=== PATIENT | male | born 1945 | race Caucasian/White ===

== ENCOUNTER 2017-02-01 10:53 | Observation (INO) | payer OTHER ==
[~2017-02-01] VITALS: Ht 182.9 cm; Wt 100.5 kg
[~2017-02-01 10:53] MED LIST: ASPI81TA28 PO; ATEN50TA8 PO; CLOP1TAB15 PO; DILT120C50 PO; GLIP-197 PO; LISI-787 PO; OMEG10007 PO; SIMV20TA2 PO
[2017-02-01] MEDS ORDERED: ASPIRIN 81 MG CHEW PO STA (11:27)
--- NOTE | 2017-02-01 11:32 | EMERGENCY ROOM VISIT NOTE ---
History Report prepared by Braulio: Angela Lemons Under the Supervision of: Dr. Jefrfey Muñoz M.D. First contact with patient: 11:19 Chief Complaint: CHEST PAIN Stated Complaint: CHEST PAIN,SOB,NUMBNESS IN ARM History of Present Illness The patient is a 71 year old male who presents to the Emergency Room with complaints of intermittent left sided chest pain that began four days ago. He currently rates his discomfort as a 5/10 in severity. The patient reports that he has a history pain similar to this in August 2015, noting that he had a stent placed in [place]. He reports that his pain radiates down his left arm and additionally notes numbness in his left arm. The patient states that his pain is worsened with movement and exertion. He additionally associates shortness of breath, lightheadedness, and dizziness with his symptoms today. The patient denies any loss of consciousness, fever, nausea, back pain, melena, or hematochezia. He reports that he takes aspirin daily. Source of History: patient, family Onset: four days ago Position: chest (left) Symptom Intensity: 5/10 Timing: intermittent Modifying Factors (Worsening): exertion, movement Associated Symptoms: + SOB, + numbness (left arm), No LOC, No fevers, No nausea, No back pain, No melena, No hematochezia Note: Associated Symptoms: lightheadedness, dizziness, left arm pain Review of Systems See HPI for pertinent positives & negatives. A total of 10 systems reviewed and were otherwise negative. Past Medical & Surgical Medical Problems: (1) CAD (coronary artery disease) (2) Chest pain (3) Hypertension Old medical records were reviewed. Nurse's notes were reviewed and I agree with. Family History Patient reports no known family medical history. Social History Smoking Status: Former Smoker Marital Status: Housing Status: lives with family Current/Historical Medications Scheduled Aspirin (Aspirin Ec), 81 MG PO DAILY Atenolol (Tenormin), 50 MG PO DAILY Glipizide (Glipizide Er), 2.5 MG PO BID Hctz/Lisinopril (Zestoretic 20-12.5 mg), 2 TABS PO DAILY Pantoprazole (Protonix), 40 MG PO DAILY Simvastatin (Zocor), 10 MG PO QPM Allergies Coded Allergies: Meperidine (Verified Allergy, Unknown, UNKNOWN, 02/26/16) Physical Exam Vital Signs Date Time Temp Pulse Resp B/P (MAP) Pulse Ox O2 Delivery O2 Flow Rate FiO2 02/01/17 14:10 94 Room Air 02/01/17 14:00 53 20 217/95 95 02/01/17 13:32 53 20 196/91 94 Room Air 02/01/17 13:17 54 02/01/17 12:30 53 20 189/89 93 02/01/17 12:07 54 18 192/91 95 Room Air 02/01/17 11:22 95 Room Air 02/01/17 11:21 55 18 175/89 95 Room Air 02/01/17 11:19 95 Room Air 02/01/17 11:13 56 02/01/17 10:55 36.3 55 20 189/90 94 Room Air Physical Exam General: Well developed well nourished, non-ill appearing middle aged male, in no acute distress, breathing comfortably on room air. Normal speech HEENT: Normal cephalic atraumatic. Pupils are equal round and reactive to light. Extraocular movements are intact. Oropharynx is pink with moist mucous membranes. No swelling of the mouth lips or tongue. Neck: Supple with a midline trachea. No meningeal signs or stiffness, no JVD or bruits. No Stridor. Chest: Clear to auscultation bilaterally. No wheezes or rhonchi. No increased work of breathing. Heart: regular rate and rhythm. Abdomen: Soft nontender, nondistended without rebound guarding or rigidity. Extremities: No cyanosis clubbing or edema. No calf tenderness or assymetry Spine/Back. Non tender to palpation. No CVA tenderness Skin: Good turgor without rashes. Neurologic exam: Cranial nerves two through 12 are intact. Motor and sensation are intact and symmetrical throughout. Medical Decision & Procedures ER Provider Diagnostic Interpretation: X-ray results as stated below per interpretation by me and the radiologist: CHEST ONE VIEW PORTABLE CLINICAL HISTORY: CHEST PAIN dyspnea COMPARISON STUDY: No previous studies for comparison. FINDINGS: The bones soft tissues and hemidiaphragms are normal. The cardiomediastinal silhouette is normal. The lungs are clear. The pulmonary vasculature is normal. IMPRESSION: Negative chest. Electronically signed by: South Eid M.D. 02/01/2017 11:46 AM Dictated Date/Time: 02/01/2017 11:44 AM The status of this report is Signed. Draft = Not yet reviewed or approved by Radiologist. Signed = Reviewed and approved by Radiologist. Laboratory Results 02/01/17 11:15 Red Blood Count 5.19, Mean Corpuscular Volume 87.3, Mean Corpuscular Hemoglobin 30.6, Mean Corpuscular Hemoglobin Concent 35.1, Mean Platelet Volume 10.8, Neutrophils (%) (Auto) 59.4, Lymphocytes (%) (Auto) 30.8, Monocytes (%) (Auto) 7.9, Eosinophils (%) (Auto) 1.5, Basophils (%) (Auto) 0.3, Neutrophils # (Auto) 5.66, Lymphocytes # (Auto) 2.94, Monocytes # (Auto) 0.75, Eosinophils # (Auto) 0.14, Basophils # (Auto) 0.03 02/01/17 11:15 Test 02/01/17 11:15 02/01/17 11:27 02/01/17 11:37 White Blood Count 9.53 K/uL (4.8-10.8) Red Blood Count 5.19 M/uL (4.7-6.1) Hemoglobin 15.9 g/dL (14.0-18.0) Hematocrit 45.3 % (42-52) Mean Corpuscular Volume 87.3 fL (80-100) Mean Corpuscular Hemoglobin 30.6 pg (25-34) Mean Corpuscular Hemoglobin Concent 35.1 g/dl (32-36) Platelet Count 184 K/uL (130-400) Mean Platelet Volume 10.8 fL (7.4-10.4) Neutrophils (%) (Auto) 59.4 % Lymphocytes (%) (Auto) 30.8 % Monocytes (%) (Auto) 7.9 % Eosinophils (%) (Auto) 1.5 % Basophils (%) (Auto) 0.3 % Neutrophils # (Auto) 5.66 K/uL (1.4-6.5) Lymphocytes # (Auto) 2.94 K/uL (1.2-3.4) Monocytes # (Auto) 0.75 K/uL (0.11-0.59) Eosinophils # (Auto) 0.14 K/uL (0-0.5) Basophils # (Auto) 0.03 K/uL (0-0.2) RDW Standard Deviation 40.5 fL (36.4-46.3) RDW Coefficient of Variation 12.7 % (11.5-14.5) Immature Granulocyte % (Auto) 0.1 % Immature Granulocyte # (Auto) 0.01 K/uL (0.00-0.02) Prothrombin Time 10.0 SECONDS (9.0-12.0) Prothromb Time International Ratio 0.9 (0.9-1.1) Activated Partial Thromboplast Time 22.6 SECONDS (21.0-31.0) Partial Thromboplastin Ratio 0.9 Anion Gap 7.0 mmol/L (3-11) Est Creatinine Clear Calc Drug Dose 42.8 ml/min Estimated GFR () 39.9 Estimated GFR (Non- 34.5 BUN/Creatinine Ratio 11.4 (10-20) Estimated Average Glucose 126 mg/dl Hemoglobin A1c 6.0 % (4.5-5.6) Calcium Level 8.2 mg/dl (8.5-10.1) Total Bilirubin 0.7 mg/dl (0.2-1) Direct Bilirubin mg/dl (0-0.2) Aspartate Amino Transf (AST/SGOT) 19 U/L (15-37) Alanine Aminotransferase (ALT/SGPT) 24 U/L (12-78) Alkaline Phosphatase 66 U/L (45-117) Total Creatine Kinase 134 U/L (39-308) Creatine Kinase MB 1.9 ng/ml (0.5-3.6) Total Protein 7.1 gm/dl (6.4-8.2) Albumin 3.7 gm/dl (3.4-5.0) Lipase 265 U/L (73-393) Chemistry Specimen Hemolysis Creatine Kinase MB Ratio (0-3.0) Bedside Troponin I < 0.030 ng/ml (0-0.045) Laboratory studies as stated above per my review. Medications Administered Medications (Trade) Dose Ordered Sig/Gregoria Route Start Time Stop Time Status Last Admin Dose Admin Aspirin (Aspirin Chew) 324 mg NOW STAT PO 02/01/17 11:27 02/01/17 11:29 DC 02/01/17 12:17 324 MG Hydralazine HCl (HydrALAZINE INJ) 10 mg NOW STAT IV. 02/01/17 14:00 02/01/17 14:30 DC 02/01/17 14:00 10 MG ECG Indication: chest pain Rate (beats per minute): 54 Rhythm: sinus bradycardia Findings: no acute ischemic change, left axis deviation Comparison ECG Date: 06/09/99 Change: no significant change ED Course 1124: Past medical records reviewed. The patient was evaluated in room C6, and a complete history and physical examination were performed. 1127: Ordered Aspirin 324 mg PO. 1309: I reevaluated the patient and he is resting comfortably. I discussed the exam findings with him and I discussed the treatment plan. He verbalized complete understanding and agreement. He will be evaluated for further treatment. 1341: I discussed the patients case with JOAQUÍN Renee. He is going to evaluate the patient for further treatment. Medical Decision Differentials include, but are not limited to; acute coronary syndrome, arrhythmia, electrolyte or metabolic abnormality, CHF. Medication Reconciliation: I attest that I have personally reviewed the patient' s current medication list. Blood pressure Screening: Patient was found to have an elevated blood pressure and is being followed for further treatment and evaluation in the hospital. This patient comes in as described above. He's been having intermittent chest pain and left arm pain. It is exertional. He does have a history of coronary artery disease and did have a stent placed for similar complaints in the past. He is pain-free at present. He was given aspirin here. His initial EKG does not suggest acute coronary syndrome or arrhythmia. There are no ischemic changes. Chest x-ray was unremarkable and there is nothing to suggest congestive heart failure, pneumonia, pneumothorax. His cardiac biomarkers are not elevated initially. He has some renal insufficiency but no other electrolyte or metabolic abnormality. Given his cardiac history and his symptoms, I do think he needs to be observed or admitted in the hospital for further treatment and evaluation. The symptoms are worrisome for unstable angina. He will be admitted for further treatment and evaluation. I have consulted the hospitalist team. Consults Time Called: 1309 Consulting Physician: JOAQUÍN Renee Returned Call: 1341 I discussed the patients case with JOAQUÍN Renee. He is going to evaluate the patient for further treatment. Impression Primary Impression: Unstable angina Additional Impression: Precordial chest pain Scribe Attestation The scribe's documentation has been prepared under my direction and personally reviewed by me in its entirety. I confirm that the note above accurately reflects all work, treatment, procedures, and medical decision making performed by me. Departure Information Dispostion Being Evaluated By Hospitalist Referrals No Doctor, Assigned (PCP) Problem Qualifiers
[2017-02-01 11:47] LABS: BASO % 0.3 %; BASO ABS # 0.03 K/uL (0-0.2); COMPLETE YES; EOS % 1.5 %; HEMATOCRIT 45.3 % (42-52); IG% 0.1 %; LYMPH % 30.8 %; LYMPH ABS # 2.94 K/uL (1.2-3.4); MEAN CELL VOLUME 87.3 fL (80-100); MEAN CORPUSCULAR HEMOGLOBIN 30.6 pg (25-34); MEAN CORPUSCULAR HGB CONC 35.1 g/dl (32-36); MEAN PLATELET VOLUME 10.8 fL (7.4-10.4); MONO % 7.9 %; NEUT % 59.4 %; PLATELET COUNT 184 K/uL (130-400); RED BLOOD COUNT 5.19 M/uL (4.7-6.1); WHITE BLOOD COUNT 9.53 K/uL (4.8-10.8)
--- NOTE | 2017-02-01 11:48 | DIAGNOSTIC IMAGING REPORT ---
CHEST ONE VIEW PORTABLE CLINICAL HISTORY: CHEST PAIN dyspnea COMPARISON STUDY: No previous studies for comparison. FINDINGS: The bones soft tissues and hemidiaphragms are normal. The cardiomediastinal silhouette is normal. The lungs are clear. The pulmonary vasculature is normal. IMPRESSION: Negative chest. Electronically signed by: South Eid M.D. 02/01/2017 11:46 AM Dictated Date/Time: 02/01/2017 11:44 AM
[2017-02-01 11:55] LABS: INR 0.9 (0.9-1.1); PARTIAL THROMBOPLASTIN RATIO 0.9
[2017-02-01] MEDS ORDERED: PANT40TA PO (12:00)
[2017-02-01] MEDS ORDERED: ASPI81TA28 PO (12:12)
[2017-02-01 12:23] LABS: ALKALINE PHOSPHATASE 66 U/L (45-117); ALT/SGPT 24 U/L (12-78); AST/SGOT 19 U/L (15-37); BLOOD UREA NITROGEN 22 mg/dl (7-18); BUN/CREATININE RATIO 11.4 (10-20); CALCIUM 8.2 mg/dl (8.5-10.1); CARBON DIOXIDE 30 mmol/L (21-32); CHLORIDE 105 mmol/L (98-107); CKMB/CK RATIO 1.4 (0-3.0); GLUCOSE 105 mg/dl (70-99); POTASSIUM 3.8 mmol/L (3.5-5.1); SODIUM 142 mmol/L (136-145)
[2017-02-01] MEDS ORDERED: GLUCAGON FOR INJ 1 MG VIAL SQ PRN (14:00)
[2017-02-01] MEDS ORDERED: NITROGLYCERIN 0.4 MG SL PER TAB CHARGE SL PRN (14:00)
[2017-02-01] MEDS ORDERED: HydrALAZINE HCL 20 MG/ML VIAL IV. STA (14:00)
[2017-02-01] MEDS ORDERED: HydrALAZINE HCL 20 MG/ML VIAL IV. PRN (14:00)
[2017-02-01] MEDS ORDERED: GLUCOSE 10 TABS/TUBE PO PRN (14:00)
[2017-02-01] MEDS ORDERED: ONDANSETRON INJ 2 MG/ML 2 ML VIAL IV PRN (14:00)
[2017-02-01] MEDS ORDERED: POLYETHYLENE (MIRALAX) 17 GM PACK PO PRN (14:00)
[2017-02-01] MEDS ORDERED: GLUCOSE 40% GEL 15 GM TUBE PO PRN (14:00)
[2017-02-01] MEDS ORDERED: MAGNESIUM HYDROXIDE SUSP 30 ML UDC PO PRN (14:00)
[2017-02-01] MEDS ORDERED: DEXTROSE 50% 50 ML SYR IV PRN (14:00)
[2017-02-01] MEDS ORDERED: ALUMINUM/MAGNESIUM/SIMETH (MAALOX MAX) 30 ML UDC PO PRN (14:00)
[2017-02-01] MEDS ORDERED: ACETAMINOPHEN 325 MG TAB PO PRN (14:00)
[2017-02-01 14:10] VITALS: O2SAT 94; Ht 182.9 cm; Wt 100.5 kg
[2017-02-01] MEDS ORDERED: IV FLUIDS COMPLETED PRN (14:15)
--- NOTE | 2017-02-01 14:29 | History and Physical ---
History & Physical Date & Time of Service: Feb 01, 2017 at 14:13 Chief Complaint: Chest Pain,Sob,Numbness In Arm Primary Care Physician: No Doctor, Assigned History of Present Illness Source: patient, family (son in law at bedside), hospital records This is a 71 y/o male with a history of CO s/p cardiac stent x 1 in August 2015 , HTN, HLD, DM II and GERD who presented to the ED on 02/01 with intermittent chest pain x 4 days. The patient describes an intermittent chest pressure on the left side of his chest for the last 4 days. The patient denies taking anything for the pain at home. He denies anything making pain better or worse. Today the chest discomfort began radiating down his left arm and was accompanied with left arm numbness and some shortness of breath. He states that this feels like his last heart attack in August 2015, after which he had 1 stent placed at [facility]. The patient states that at its worst, his chest discomfort was a 6/10 pressure. He states that his chest pain and shortness of breath are currently resolved, as well as his arm pain and numbness. The patient denies fevers, chills, sweats, dizziness, headache, palpitations, claudication, cough, wheezing, nausea, vomiting, abdominal pain, dysuria, hematuria, urinary retention, paralysis, weakness. Past Medical/Surgical History Medical Problems: (1) CAD (coronary artery disease) Status: Chronic (2) Hypertension Status: Chronic HLD h/o CO s/p stent August 2015 DM II GERD Family History Diabetes mellitus Hypertension Myocardial infarction Stroke Social History Smoking Status: Light Tobacco Smoker (occasional cigars) Smokeless Tobacco Use: No Alcohol Use: none Drug Use: none Marital Status: Housing status: lives with significant other Occupational Status: retired Allergies Coded Allergies: Meperidine (Verified Allergy, Unknown, UNKNOWN, 02/26/16) Home Medications Scheduled Aspirin (Aspirin Ec), 81 MG PO DAILY Atenolol (Tenormin), 50 MG PO DAILY Glipizide (Glipizide Er), 2.5 MG PO BID Hctz/Lisinopril (Zestoretic 20-12.5 mg), 2 TABS PO DAILY Pantoprazole (Protonix), 40 MG PO DAILY Simvastatin (Zocor), 10 MG PO QPM Review of Systems Constitutional: No fever, No chills, No sweats Eyes: No worsening of vision, No eye pain, No diplopia ENT: No hearing loss, No sore throat, No trouble swallowing Respiratory: + shortness of breath, No cough, No wheezing Cardiovascular: + chest pain, No claudication, No palpitations Abdomen: No pain, No nausea, No vomiting Musculoskeletal: No joint pain, No muscle pain, No calf pain Genitourinary - Male: No hematuria, No dysuria, No urinary retention Neurologic: + numbness/tingling, No paralysis, No weakness Integumentary: No rash, No itch, No color change Physical Exam Vital Signs Date Time Temp Pulse Resp B/P (MAP) Pulse Ox O2 Delivery O2 Flow Rate FiO2 02/01/17 13:32 53 20 196/91 94 Room Air 02/01/17 13:17 54 02/01/17 12:30 53 20 189/89 93 02/01/17 12:07 54 18 192/91 95 Room Air 02/01/17 11:22 95 Room Air 02/01/17 11:21 55 18 175/89 95 Room Air 02/01/17 11:19 95 Room Air 02/01/17 11:13 56 02/01/17 10:55 36.3 55 20 189/90 94 Room Air General appearance: Well-developed, well-nourished, no apparent distress Head: Normocephalic, atraumatic Eyes: Normal inspection, PERRL, EOMI ENT: Normal ENT inspection, hearing grossly normal, pharynx normal Neck: Supple, no JVD, trachea midline Respiratory/Chest: Lungs clear to auscultation, normal breath sounds, no respiratory distress Cardiovascular: +Bradycardia. Regular rhythm, no gallop, no murmur Abdomen/GI: Normal bowel sounds, non-tender, soft Extremities/Musculoskeletal: Normal inspection, no calf tenderness, no pedal edema Neurological/Psych: Alert, normal mood/affect, oriented x 3 Skin: Normal color, warm/dry, no rash Diagnostics Laboratory Results Results Past 24 Hours Test 02/01/17 11:15 02/01/17 11:27 02/01/17 11:37 02/01/17 13:59 Range/Units White Blood Count 9.53 4.8-10.8 K/uL Red Blood Count 5.19 4.7-6.1 M/uL Hemoglobin 15.9 14.0-18.0 g/dL Hematocrit 45.3 42-52 % Mean Corpuscular Volume 87.3 80-100 fL Mean Corpuscular Hemoglobin 30.6 25-34 pg Mean Corpuscular Hemoglobin Concent 35.1 32-36 g/dl Platelet Count 184 130-400 K/uL Mean Platelet Volume 10.8 7.4-10.4 fL Neutrophils (%) (Auto) 59.4 % Lymphocytes (%) (Auto) 30.8 % Monocytes (%) (Auto) 7.9 % Eosinophils (%) (Auto) 1.5 % Basophils (%) (Auto) 0.3 % Neutrophils # (Auto) 5.66 1.4-6.5 K/uL Lymphocytes # (Auto) 2.94 1.2-3.4 K/uL Monocytes # (Auto) 0.75 0.11-0.59 K/uL Eosinophils # (Auto) 0.14 0-0.5 K/uL Basophils # (Auto) 0.03 0-0.2 K/uL RDW Standard Deviation 40.5 36.4-46.3 fL RDW Coefficient of Variation 12.7 11.5-14.5 % Immature Granulocyte % (Auto) 0.1 % Immature Granulocyte # (Auto) 0.01 0.00-0.02 K/uL Prothrombin Time 10.0 9.0-12.0 SECONDS Prothromb Time International Ratio 0.9 0.9-1.1 Activated Partial Thromboplast Time 22.6 21.0-31.0 SECONDS Partial Thromboplastin Ratio 0.9 Sodium Level 142 136-145 mmol/L Potassium Level 3.8 3.5-5.1 mmol/L Chloride Level 105 98-107 mmol/L Carbon Dioxide Level 30 21-32 mmol/L Anion Gap 7.0 3-11 mmol/L Blood Urea Nitrogen 22 7-18 mg/dl Creatinine 1.90 0.60-1.40 mg/dl Est Creatinine Clear Calc Drug Dose 42.8 ml/min Estimated GFR () 39.9 Estimated GFR (Non- 34.5 BUN/Creatinine Ratio 11.4 10-20 Random Glucose 105 70-99 mg/dl Calcium Level 8.2 8.5-10.1 mg/dl Total Bilirubin 0.7 0.2-1 mg/dl Direct Bilirubin 0-0.2 mg/dl Aspartate Amino Transf (AST/SGOT) 19 15-37 U/L Alanine Aminotransferase (ALT/SGPT) 24 12-78 U/L Alkaline Phosphatase 66 45-117 U/L Total Creatine Kinase 134 39-308 U/L Creatine Kinase MB 1.9 0.5-3.6 ng/ml Creatine Kinase MB Ratio 1.4 0-3.0 Total Protein 7.1 6.4-8.2 gm/dl Albumin 3.7 3.4-5.0 gm/dl Lipase 265 73-393 U/L Chemistry Specimen Hemolysis Bedside Troponin I < 0.030 0-0.045 ng/ml Diagnostic Radiology Reviewed the following studies and agree with interpretation as follows: Patient Name: KELSEA TORRES Unit Number: [id number] Dictated: 02/01/[id number] Transcribed: 02/01/17 1144 MS Printed Date/Time: [~ rep prt dt]/[~ rep prt tm] [~ rep ct labl] - [~ rep ct ivnm] [facility] [place] [address] Dictated: 02/01/[id number] Transcribed: 02/01/17 1144 MS Printed Date/Time: [~ rep prt dt]/[~ rep prt tm] [~ rep ct labl] - [~ rep ct ivnm] Patient: KELSEA TORRES Address1: [address] [place] [address] Rec: [id number] Address2: Acct ID: [id number] [facility] Zip: [place] [address] Date: 1945 Sex: M Room/Bed: Ref Phy: No Doctor, Assigned SC: REMBERTO Att Phy: Report #: [id number] Jahaira Phy: No Doctor, Assigned Test: CXR1P Admit Phy: [place]: ALMA Interpreting Phy: South Eid M.D. Diagnosis: CHEST PAIN,SOB,NUMBNESS IN ARM Ordering Phy: Jeffrey Muñoz M.D. Service Date: 02/01/17 Admit Date: 02/01/17 MNE: [id number] CONF: DICTATED BY: South Eid M.D.]] CC: Jeffrey Muñoz M.D. No Doctor, Assigned Endcc: [~ rep ct add3]] CHEST ONE VIEW PORTABLE CLINICAL HISTORY: CHEST PAIN dyspnea COMPARISON STUDY: No previous studies for comparison. FINDINGS: The bones soft tissues and hemidiaphragms are normal. The cardiomediastinal silhouette is normal. The lungs are clear. The pulmonary vasculature is normal. IMPRESSION: Negative chest. Electronically signed by: South Eid M.D. 02/01/2017 11:46 AM Dictated Date/Time: 02/01/2017 11:44 AM The status of this report is Signed. Draft = Not yet reviewed or approved by Radiologist. Signed = Reviewed and approved by Radiologist. <AttendingPhy></AttendingPhy> <FamilyPhy>No Doctor, Assigned</FamilyPhy> < PrimaryPhy>No Doctor, Assigned</PrimaryPhy> <UnitNumber>[id number]</UnitNumber> <VisitNumber>[id number]</VisitNumber> <PatientName>KELSEA TORRES</ PatientName> <DateOfBirth>1945</DateOfBirth> <Location>[facility]</Location> < ServiceDate>02/01/17</ServiceDate> <MNE>ESINDI</MNE> <OrderingPhy>Jeffrey Muñoz M.D.</OrderingPhy> <OrderingPhyMNE>f rep ord dr perdue</OrderingPhyMNE> < DictatingPhyMNE>f rep dict dr perdue</DictatingPhyMNE> <CCListMNE>f rep ct mne</ CCListMNE> <AdmittingPhyMNE>f pt admit dr perdue</AdmittingPhyMNE> <AttendingPhyMNE >f pt attend dr perdue</AttendingPhyMNE> <ConsultingPhyMNE>f pt consult dr perdue</ConsultingPhyMNE> <FamilyPhyMNE>f pt fam dr perdue</FamilyPhyMNE> <OtherPhyMNE>f pt other dr perdue</OtherPhyMNE> < PrimaryPhyMNE>f pt prim care dr perdue</PrimaryPhyMNE> <ReferringPhyMNE>f pt referring dr mne</ReferringPhyMNE> EKG Reviewed EKG and agree with interpretation as follows: 54 bpm, sinus bradycardia, LAD, old inferior infarct Impression Assessment and Plan 71 y/o male with a history of CO s/p cardiac stent x 1 in August 2015, HTN, HLD , DM II and GERD who presented to the ED on 02/01 with intermittent chest pain x 4 days. Associated shortness of breath, left arm pain and numbness with today' s chest discomfort. Pt received ASA in ED. BP elevated while in ED, up to 203/ 93 during my exam. CXR no acute disease. EKG sinus bradycardia without acute ischemic changes, shows inferior infarct. Cardiac enzymes negative. Creatinine elevated at 1.9, unknown baseline. Hypertensive emergency w/chest pain, h/o HTN -Admit to telemetry for observation -Hydralazine 10 mg IV stat, hydralazine 10 mg PO x 1 -Hydralazine 10 mg PO QID -Nitro paste 1 inch q6h scheduled -Trend cardiac enzymes q8h x 3 -Echocardiogram ordered -EKG q am and prn with chest pain -HgbA1c -Fasting lipid panel -Hold lisinopril/HCTZ due to LEANDRO -Cover with hydralazine 10 mg IV q6h prn SBP >180 Acute kidney injury--unknown baseline creatinine, last creatinine on hospital records from 1998 -Creatinine 1.9 on arrival -IVF NSS 125 cc/hr -Hold lisinopril/HCTZ as above -Continue to monitor H/o CO s/p stent August 2015, CAD -Continue atenolol 50 mg PO qd and ASA 81 mg PO qd HLD -Continue simvastatin 10 mg PO qhs Diabetes mellitus type 2--no HgbA1c on record, rechecking now -Hold glipizide -Insulin sliding scale -Check BSGs q ac and qhs GERD -Continue pantoprazole 40 mg PO qd DVT prophylaxis -Heparin 5000 units SC q8h -ESTUARDO Mathew Code Status -Level I, FULL RESUSCITATION STATUS This chart was completed in part utilizing Number 100 Speech Voice Recognition software. Attempts were made to minimize the grammatical errors, random word insertions, pronoun errors and incomplete sentences. Any formal questions or concerns about the content, text or information contained within the body of this dictation should be directly addressed to the provider for clarification. Level of Care Telemetry Resuscitation Status FULL RESUSCITATION VTE Prophylaxis VTE Risk Assessment Done? Y/N: Yes Risk Level: Moderate Given or contraindicated: Unfractionated heparin SQ, T.E.D. Stockings, SCD's Assessment and Plan Attending Addendum: I have physically seen and examined this patient, directed their medical care, supervised the Physician Neonatal Icu Coordinator's activity, and agree with the H&P as noted above, with the following changes: NONE.
[2017-02-01] MEDS ORDERED: NITROGLYCERIN OINT 2% 1GM PACKET EXT SCH (14:30)
[2017-02-01] MEDS ORDERED: HydrALAZINE 10 MG TAB PO ONE (14:30)
[2017-02-01 14:48] LABS: ESTIMATED AVERAGE GLUCOSE 126 mg/dl; HA1C FLAG Normal (Normal)
[2017-02-01 16:00] VITALS: BP 208/92; PULSE 59; TEMP 36.9; O2SAT 95
[2017-02-01] MEDS: INSULIN ASPART 100 UNITS/ML 3 ML PEN SC SCH ×2 (16:15→21:00)
[2017-02-01] MEDS: SODIUM CHLORIDE 0.9% 1000ML 1,000 ML IV SCH (16:43)
[2017-02-01] MEDS: HydrALAZINE 10 MG TAB PO SCH ×2 (17:03→21:07)
[2017-02-01] MEDS: NITROGLYCERIN 2% OINTMENT 30GM TUBE EXT SCH (17:33)
[2017-02-01 17:35] VITALS: BP 173/85
[2017-02-01 19:38] VITALS: BP 126/58; PULSE 114; TEMP 36.3; O2SAT 91
[2017-02-01 19:45] VITALS: BP 172/82; PULSE 59; TEMP 36.4; O2SAT 94
[2017-02-01 20:08] LABS: CKMB/CK RATIO 1.7 (0-3.0)
[2017-02-01] MEDS: SIMVASTATIN 20 MG TAB PO SCH (21:06)
[2017-02-01] MEDS: HEPARIN SOD 5000 UNIT/0.5 ML CARP SQ SCH (21:08)
[2017-02-01 23:10] VITALS: BP 145/73; PULSE 70; TEMP 36.9; O2SAT 95
[2017-02-02] MEDS: SODIUM CHLORIDE 0.9% 1000ML 1,000 ML IV SCH ×3 (00:18→21:21)
[2017-02-02] MEDS: NITROGLYCERIN 2% OINTMENT 30GM TUBE EXT SCH ×4 (00:18→17:56)
[2017-02-02 03:15] VITALS: BP 139/72; PULSE 64; TEMP 36.7; O2SAT 95
[2017-02-02 03:17] LABS: HEMATOCRIT 42.9 % (42-52); MEAN CELL VOLUME 87.2 fL (80-100); MEAN CORPUSCULAR HEMOGLOBIN 30.3 pg (25-34); MEAN CORPUSCULAR HGB CONC 34.7 g/dl (32-36); MEAN PLATELET VOLUME 10.6 fL (7.4-10.4); PLATELET COUNT 161 K/uL (130-400); RED BLOOD COUNT 4.92 M/uL (4.7-6.1); WHITE BLOOD COUNT 8.47 K/uL (4.8-10.8)
[2017-02-02 03:34] LABS: BLOOD UREA NITROGEN 23 mg/dl (7-18); CALCIUM 7.9 mg/dl (8.5-10.1); CARBON DIOXIDE 27 mmol/L (21-32); CHLORIDE 108 mmol/L (98-107); GLUCOSE 107 mg/dl (70-99); POTASSIUM 3.6 mmol/L (3.5-5.1); SODIUM 143 mmol/L (136-145)
[2017-02-02 03:39] LABS: CHOLESTEROL 120 mg/dl (0-200); CHOLESTEROL/HDL RATIO 5.2; CKMB/CK RATIO 1.4 (0-3.0); HDL CHOLESTEROL 23 mg/dl; LDL CHOLESTEROL CALCULATED 22 mg/dl; TRIGLYCERIDES 373 mg/dl (0-150); VERY LOW DENSITY LIPOPROT CALC 75 mg/dl
[2017-02-02] MEDS: HEPARIN SOD 5000 UNIT/0.5 ML CARP SQ SCH ×3 (06:22→21:24)
[2017-02-02] MEDS: INSULIN ASPART 100 UNITS/ML 3 ML PEN SC SCH ×4 (07:00→21:00)
[2017-02-02] MEDS: ASPIRIN 81 MG ECTAB PO SCH (08:12)
[2017-02-02] MEDS: PANTOprazole SOD 40 MG TAB PO SCH (08:13)
[2017-02-02 08:46] VITALS: BP 177/79; PULSE 62; TEMP 36.5; O2SAT 94
[2017-02-02] MEDS: HydrALAZINE 10 MG TAB PO SCH ×4 (09:32→21:22)
[2017-02-02 11:31] VITALS: BP 150/76; PULSE 59; TEMP 36.7; O2SAT 95
--- NOTE | 2017-02-02 12:55 | Progress Note ---
Subjective Date of Service: Feb 02, 2017. Subjective Pt evaluation today including: conversation w/ patient, conversation w/ family , physical exam, chart review, lab review, review of studies, conversation w/ learning consultant, review of inpatient medication list Sitting up eating lunch, no complaining no chest pain, no shortness of breath Problem List Medical Problems: (1) Precordial chest pain Status: Acute (2) Unstable angina Status: Acute (3) Wound infection Status: Acute Review of Systems Constitutional: No fever, No chills, No sweats, No weight loss, No weakness, No fatigue, No problem reported Eyes: No worsening of vision, No eye pain, No redness, No discharge, No diplopia ENT: No hearing loss, No unusual epistaxis, No nasal symptoms, No sore throat, No tinnitus, No dental problems, No trouble swallowing Respiratory: No cough, No sputum, No wheezing, No shortness of breath, No dyspnea on exertion, No dyspnea at rest, No hemoptysis Cardiac: No chest pain, No orthopnea, No PND, No edema, No claudication, No palpitations Abdomen: No pain, No nausea, No vomiting, No diarrhea, No constipation Musculoskeletal: No joint pain, No muscle pain, No swelling, No calf pain Male : No dysuria, No urinary frequency, No incontinence, No nocturia more than once/night, No slowing stream, No hematuria Neurologic: No memory loss, No paralysis, No weakness, No numbness/tingling, No vertigo, No balance problems Psychiatric: No depression symptoms, No anhedonism, No anxiety, No insomnia, No substance abuse Heme: No abnormal bleeding/bruising, No clotting problems, No swollen lymph nodes, No night sweats Endo: No fatigue, No excessive thirst, No excessive urination Skin: No rash, No itch, No new/changing skin lesions, No color change, No bleeding Objective Vital Signs Date Time Temp Pulse Resp B/P (MAP) Pulse Ox O2 Delivery O2 Flow Rate FiO2 02/02/17 11:31 36.7 59 16 150/76 (100) 95 Room Air 59 02/02/17 08:46 36.5 62 16 177/79 (111) 94 Room Air 62 02/02/17 04:25 Room Air 02/02/17 03:15 36.7 64 18 139/72 (94) 95 Room Air 02/02/17 00:25 Room Air 02/01/17 23:10 36.9 70 18 145/73 (97) 95 Room Air 02/01/17 20:19 Room Air 02/01/17 19:45 36.4 59 16 172/82 (112) 94 Room Air 02/01/17 19:38 36.3 114 22 126/58 (80) 91 Nasal Cannula 4.0 02/01/17 17:35 173/85 (114) 02/01/17 16:00 36.9 59 16 208/92 (130) 95 Room Air 02/01/17 16:00 Room Air 02/01/17 15:27 53 20 207/97 94 Room Air 02/01/17 15:00 55 20 192/87 95 02/01/17 14:10 94 Room Air 02/01/17 14:00 53 20 217/95 02/01/17 13:32 53 20 196/91 94 Room Air 02/01/17 13:17 54 Physical Exam General Appearance: WD/WN, no apparent distress Eyes: normal inspection, PERRL, EOMI, sclerae normal ENT: normal ENT inspection, hearing grossly normal, pharynx normal Neck: supple, no adenopathy, thyroid normal, no JVD, no carotid bruits, trachea midline Respiratory/Chest: chest non-tender, normal breath sounds, no respiratory distress, no accessory muscle use, + decreased breath sounds Cardiovascular: regular rate, rhythm, no edema, no gallop, no JVD, no murmur Abdomen: normal bowel sounds, non tender, soft, no organomegaly, no pulsatile mass Extremities: normal range of motion, non-tender, normal inspection, no pedal edema, no calf tenderness, normal capillary refill, pelvis stable Neurologic/Psychiatric: 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 tested, no motor/sensory deficits, alert, normal mood/affect, oriented x 3 Skin: normal color, warm/dry, no rash Lymphatic: no adenopathy Laboratory Results Last 24 Hours Test 02/01/17 16:43 02/01/17 19:27 02/01/17 20:12 02/02/17 03:00 Bedside Glucose 100 mg/dl 112 mg/dl Total Creatine Kinase 93 U/L 88 U/L Creatine Kinase MB 1.6 ng/ml 1.2 ng/ml Creatine Kinase MB Ratio 1.7 1.4 Troponin I < 0.015 ng/ml < 0.015 ng/ml White Blood Count 8.47 K/uL Red Blood Count 4.92 M/uL Hemoglobin 14.9 g/dL Hematocrit 42.9 % Mean Corpuscular Volume 87.2 fL Mean Corpuscular Hemoglobin 30.3 pg Mean Corpuscular Hemoglobin Concent 34.7 g/dl RDW Standard Deviation 40.7 fL RDW Coefficient of Variation 12.7 % Platelet Count 161 K/uL Mean Platelet Volume 10.6 fL Sodium Level 143 mmol/L Potassium Level 3.6 mmol/L Chloride Level 108 mmol/L Carbon Dioxide Level 27 mmol/L Anion Gap 8.0 mmol/L Blood Urea Nitrogen 23 mg/dl Creatinine 1.90 mg/dl Est Creatinine Clear Calc Drug Dose 42.8 ml/min Estimated GFR () 39.9 Estimated GFR (Non- 34.5 BUN/Creatinine Ratio 12.0 Random Glucose 107 mg/dl Calcium Level 7.9 mg/dl Triglycerides Level 373 mg/dl Cholesterol Level 120 mg/dl HDL Cholesterol 23 mg/dl LDL Cholesterol, Calculated 22 mg/dl VLDL Cholesterol, Calculated 75 mg/dl Cholesterol/HDL Ratio 5.2 Test 02/02/17 06:57 02/02/17 10:49 Bedside Glucose 109 mg/dl 139 mg/dl Assessment and Plan 71 y/o male admitted on 02/01/2017 with intermittent chest pain x 4 days. Patient reported has chest pain, and goes for 4 days, associated shortness of breath, left arm pain and numbness with today's chest discomfort. Pt received ASA in ED. BP elevated while in ED, up to 203/93 during my exam. CXR no acute disease. EKG sinus bradycardia without acute ischemic changes, shows inferior infarct. Cardiac enzymes negative. Creatinine elevated at 1.9, unknown baseline. history of IN s/p cardiac stent x 1 in August 2015, HTN, HLD, DM II and GERD Hypertensive emergency w/chest pain, h/o HTN, stable and improved Acute kidney injury--unknown baseline creatinine, Creatinine 1.9 on arrival, today's the same Chest pain was intermittent with history of IN and stent, Stent was done in [place] by Dr. Hampton, then he follow-up with [place] team Diabetic Dyslipidemia with high triglyceride: - The new telemetry for observation -Hydralazine 10 mg IV stat, hydralazine 10 mg PO x 1 -Hydralazine 10 mg PO QID -Nitro paste 1 inch q6h scheduled Her medical record from the [facility] include recent labs and recent cardiology progress note Stress echo tomorrow to rule out ACS -EKG q am and prn with chest pain -HgbA1c -Fasting lipid panel -Continue Hold lisinopril/HCTZ due to LEANDRO -Cover with hydralazine 10 mg IV q6h prn SBP >180 -IVF NSS 125 cc/hr -Hold lisinopril/HCTZ as above -Continue to monitor -Continue atenolol 50 mg PO qd and ASA 81 mg PO qd HLD with hypertriglyceridemia -Continue simvastatin 10 mg PO qhs - Add Zetia Controlled Diabetes mellitus type 2 HbA1c 6.0 -Hold glipizide Cozaar possible renal failure -Insulin sliding scale -Check BSGs q ac and qhs GERD -Continue pantoprazole 40 mg PO qd DVT prophylaxis -Heparin 5000 units SC q8h -ESTUARDO Mathew Code Status -Level I, FULL RESUSCITATION STATUS Patient initially want to leave from hospital, is convincing him to stay Continued [facility] stay due to: multiple IV medications needed Discharge planning: home
--- NOTE | 2017-02-02 13:35 | ECHOCARDIOGRAM REPORT ---
*NOTICE TO RECEIVING CONSTITUTION PARTY AGENCY This information is strictly Confidential and protected under [place] law. [place] law prohibits you from making any further disclosure of this information unless further disclosure is expressly permitted by the written consent of the person to whom it pertains or is authorized by law. A general authorization for the release of medical or other information is not sufficient for this purpose. Hospital accepts no responsibility if the information is made available to any other person, INCLUDING THE PATIENT. Interpretation Summary * Name: KELSEA TORRES Study Date: 02/02/2017 06:28 AM BP: 139/72 mmHg * Patient Location: C.2E\S\E205\S\1 HR: 64 * : 1945 (M/d/yyyy) Gender: Male Height: 72 in * Age: 71 yrs Ethnicity: CA Weight: 218 lb * Ordering Physician: Maryan Hernandez * Performed By: Lauren Lopez * * Reason For Study: CHEST PAIN * BSA: 2.2 m2 * -- Conclusions -- * There is moderate concentric left ventricular hypertrophy. * Left ventricular systolic function is normal. * Grade I diastolic dysfunction, (abnormal relaxation pattern). * The left atrium is mildly dilated. * Moderate aortic regurgitation. Procedure Details * A complete two-dimensional transthoracic echocardiogram was performed (2D, M-mode, Doppler and color flow Doppler). Left Ventricle * The left ventricle is normal in size. * There is moderate concentric left ventricular hypertrophy. * Ejection Fraction = 65-70%. * Left ventricular systolic function is normal. * Grade I diastolic dysfunction, (abnormal relaxation pattern). * The left ventricular wall motion is normal. Right Ventricle * The right ventricle is normal in size and function. Atria * The left atrium is mildly dilated. * Right atrial size is normal. Mitral Valve * The mitral valve anatomy is normal. * There is trace mitral regurgitation. Tricuspid Valve * The tricuspid valve is not well visualized, but is grossly normal. * Significant tricuspid regurgitation is absent. Aortic Valve * Aortic valve sclerosis mild, without significant aortic valvular stenosis. * No hemodynamically significant valvular aortic stenosis. * Moderate aortic regurgitation. Pericardium/Pleural * There is no pericardial effusion. MMode 2D Measurements and Calculations IVSd 1.6 cm IVSs 2.2 cm LVIDd 4.5 cm LVIDs 2.7 cm LVPWd 1.5 cm LVPWs 1.9 cm IVS/LVPW 1.1 FS 40.2 % EDV(Teich) 91.8 ml ESV(Teich) 26.6 ml EF(Teich) 71.0 % EDV(cubed) 90.3 ml ESV(cubed) 19.4 ml EF(cubed) 78.6 % % IVS thick 41.0 % % LVPW thick 29.9 % LV mass(C)d 281.3 grams LV mass(C)dI 127.3 grams/m\S\2 LV mass(C)s 248.6 grams LV mass(C)sI 112.5 grams/m\S\2 SV(Teich) 65.1 ml SI(Teich) 29.5 ml/m\S\2 SV(cubed) 70.9 ml SI(cubed) 32.1 ml/m\S\2 ACS 1.9 cm LA dimension 4.1 cm asc Aorta Diam 3.0 cm LVOT diam 2.0 cm LVOT area 3.2 cm\S\2 LVAd ap4 39.0 cm\S\2 LVLd ap4 9.3 cm EDV(MOD-sp4) 132.3 ml EDV(sp4-el) 138.2 ml LVAs ap4 19.9 cm\S\2 LVLs ap4 7.2 cm ESV(MOD-sp4) 44.8 ml ESV(sp4-el) 46.5 ml EF(MOD-sp4) 66.2 % EF(sp4-el) 66.3 % LVAd ap2 29.9 cm\S\2 LVLd ap2 8.7 cm EDV(MOD-sp2) 86.2 ml EDV(sp2-el) 87.1 ml LVAs ap2 15.6 cm\S\2 LVLs ap2 6.7 cm ESV(MOD-sp2) 29.1 ml ESV(sp2-el) 30.6 ml EF(MOD-sp2) 66.3 % EF(sp2-el) 64.9 % LVLd %diff -7.03 % EDV(MOD-bp) 110.8 ml LVLs %diff -6.68 % ESV(MOD-bp) 37.2 ml EF(MOD-bp) 66.5 % SV(MOD-sp4) 87.5 ml SI(MOD-sp4) 39.6 ml/m\S\2 SV(MOD-sp2) 57.1 ml SI(MOD-sp2) 25.8 ml/m\S\2 SV(MOD-bp) 73.6 ml SI(MOD-bp) 33.3 ml/m\S\2 SV(sp4-el) 91.7 ml SI(sp4-el) 41.5 ml/m\S\2 SV(sp2-el) 56.6 ml SI(sp2-el) 25.6 ml/m\S\2 Doppler Measurements and Calculations MV E max tasha 52.1 cm/sec MV A max tasha 86.1 cm/sec MV E/A 0.61 MV dec time 0.31 sec Ao V2 max 138.0 cm/sec Ao max PG 7.6 mmHg Ao max PG (full) 3.3 mmHg CHARLEY(V,A) 2.5 cm\S\2 CHARLEY(V,D) 2.5 cm\S\2 AI max tasha 410.9 cm/sec AI max PG 67.5 mmHg AI dec slope 153.0 cm/sec\S\2 AI P1/2t 786.7 msec LV V1 max PG 4.3 mmHg LV V1 max 104.2 cm/sec PA V2 max 58.9 cm/sec PA max PG 1.4 mmHg PI end-d tasha 109.5 cm/sec
--- NOTE | 2017-02-02 14:56 | EXERCISE STRESS ECHO ---
*NOTICE TO RECEIVING DEMOCRAT AGENCY This information is strictly Confidential and protected under [place] law. [place] law prohibits you from making any further disclosure of this information unless further disclosure is expressly permitted by the written consent of the person to whom it pertains or is authorized by law. A general authorization for the release of medical or other information is not sufficient for this purpose. Hospital accepts no responsibility if the information is made available to any other person, INCLUDING THE PATIENT. Interpretation Summary * Name: KELSEA TORRES Study Date: 02/02/2017 01:06 PM BP: 145/79 mmHg * Patient Location: .2E\S\E205\S\1 HR: 63 * : 1945 (M/d/yyyy) Gender: Male Height: 72 in * Age: 71 yrs Ethnicity: CA Weight: 218 lb * Ordering Physician: Max Zeng * Referring Physician: Self, Referred * Performed By: Annabel Jackson RDCS * * Reason For Study: Chest pain * BSA: 2.2 m2 * -- Conclusions -- * Non-diagnostic exercise echocardiogram due to inability to acheive target heart rate. No evidence of ischemia at the workload acheived. Procedure Details * ECHOEX, CPT #44788 Left Ventricular Findings with Stress * Non-diagnostic exercise echocardiogram due to inability to acheive target heart rate. No evidence of ischemia at the workload acheived. Stress Parameters * Normal baseline electrocardiogram. * Stress ECG: No ST changes. No arrhythmias. * The stress portion of this study was personally supervised by the undersigned interpreting physician. * Rest heart rate was '63' BPM. * Rest blood pressure was '145/79' * Maximum heart rate achieved was 105 bpm. * Maximum heart rate was 70 % of maximum age-predicted heart rate. * Maximum blood pressure was '173/58' * Total exercise time was '6:00' * Maximum exercise MET level achieved was '7.00' METS * Maximum treadmill speed was '2.50' miles per hour. * Maximum treadmill elevation was '12.00'% grade. * Exercise was terminated due to 'patient request, fatigue' Left Ventricular Findings with Stress * Normal baseline EKG without ST changes during exercise. Blunted heart rate response to exercise. BP response to exercise was normal No symptoms reported Echocardiogram was normal at baseline. No obvious inducible wall motion abnormalities but heart rate was not eleveated and image quality was poor at peak exertion.
[2017-02-02 15:23] VITALS: BP 122/76; PULSE 62; TEMP 36.8; O2SAT 94
[2017-02-02 19:35] VITALS: BP 175/91; PULSE 58; TEMP 36.8; O2SAT 94
[2017-02-02] MEDS: SIMVASTATIN 20 MG TAB PO SCH (21:22)
[2017-02-03] VITALS: O2SAT 95
[2017-02-03] MEDS: NITROGLYCERIN 2% OINTMENT 30GM TUBE EXT SCH ×3 (00:02→11:44)
[2017-02-03 03:39] VITALS: BP 157/92; PULSE 60; TEMP 36.6; O2SAT 93
[2017-02-03] MEDS: SODIUM CHLORIDE 0.9% 1000ML 1,000 ML IV SCH ×2 (04:32→08:00)
[2017-02-03] MEDS: HEPARIN SOD 5000 UNIT/0.5 ML CARP SQ SCH (06:22)
[2017-02-03] MEDS: INSULIN ASPART 100 UNITS/ML 3 ML PEN SC SCH ×2 (07:00→11:00)
[2017-02-03 07:51] LABS: HEMATOCRIT 41.2 % (42-52); MEAN CELL VOLUME 87.1 fL (80-100); MEAN CORPUSCULAR HEMOGLOBIN 30.4 pg (25-34); MEAN PLATELET VOLUME 10.2 fL (7.4-10.4); PLATELET COUNT 152 K/uL (130-400); RED BLOOD COUNT 4.73 M/uL (4.7-6.1); WHITE BLOOD COUNT 8.58 K/uL (4.8-10.8)
[2017-02-03 07:59] VITALS: BP 152/78; PULSE 62; TEMP 36.7; O2SAT 94
[2017-02-03] MEDS: HydrALAZINE 10 MG TAB PO SCH ×2 (08:14→12:41)
[2017-02-03] MEDS: PANTOprazole SOD 40 MG TAB PO SCH (08:14)
[2017-02-03] MEDS: ASPIRIN 81 MG ECTAB PO SCH (08:14)
[2017-02-03 08:15] LABS: BUN/CREATININE RATIO 10.1 (10-20); CREATININE 1.8 mg/dl (0.60-1.40); POTASSIUM 3.7 mmol/L (3.5-5.1)
[2017-02-03] MEDS ORDERED: EZETIMIBE 10MG TAB PO SCH (09:00)
[2017-02-03] MEDS ORDERED: ZTA10 PO (11:54)
[2017-02-03] MEDS ORDERED: APR10 PO (11:54)
--- NOTE | 2017-02-03 11:55 | Discharge Instructions ---
Discharge Instructions Date of Service Feb 03, 2017. Admission Reason for Admission: Chest Pain Discharge Discharge Diagnosis / Problem: intermittent chest pain Discharge Goals Goal(s): Decrease discomfort, Improve function, Increase independence, Improve disease control, Improve nutritional status, Learn about illness, Diagnostic testing, Therapeutic intervention, Prevent Disease Progression, Specific goals Activity Recommendations Activity Limitations: resume your previous activity . Instructions / Follow-Up Instructions / Follow-Up you have intermittent chest pain x 4 days stress echo unremarkable, however, you need to be seen by you team and follow up with cinema or theatre manager in 1 week you have Hypertensive emergency, blood pressure is better, you need to take medicine as instructed, call [facility] team or go to emergency if blood pressure >200 you have Acute kidney injury, you need to have blood test tomorrow in [facility] and follow up with team, I add Zetia for you Dyslipidemia with high triglyceride I hold your glipizide Cozaar because of oyu possible acute renal failure - you need to follow up with your primary care physician in 1-2 days - take medication as instructed, never overdose or any misuse, or take with alcohol, because misuse of medicine may cause organ damage or , call your primary care physician if have questions of medicaitons. - call your primary care physician OR go to local emergency room if has any fever/chill, chest pain, shortness of breathing, nausea/vomiting/abdominal pain , facial droop/slurry speech/local weakness, or if has any questions. - fall precaution - diet as instructed - you need to follow up with your subspecialist - you should understand that it is important to follow up the above instruction , and "not following the above instruction" may cause delayed or missed care of your medical conditions which may cause permanent organ damage and even . Current Hospital Diet Patient's current hospital diet: AHA Diet (Heart Healthy), Diabetes Type 2 Diet Discharge Diet Recommended Diet: Diabetes Type 2 Diet Procedures Procedures Performed: no Pending Studies Studies pending at discharge: no Laboratory Results Hemoglobin A1c Test 02/01/17 11:15 Range/Units Estimated Average Glucose 126 mg/dl Hemoglobin A1c 6.0 H 4.5-5.6 % Lipid Panel Test 02/02/17 03:00 Range/Units Triglycerides Level 373 H 0-150 mg/dl Cholesterol Level 120 0-200 mg/dl HDL Cholesterol 23 mg/dl Cholesterol/HDL Ratio 5.2 LDL Cholesterol, Calculated 22 mg/dl Medical Emergencies . Who to Call and When: Medical Emergencies: If at any time you feel your situation is an emergency, please call 911 immediately. . Non-Emergent Contact Non-Emergency issues call your: Primary Care Provider, Horticultural Farmworker . . "Provider Documentation" section prepared by Max Zeng. . VTE Core Measure Inpt VTE Proph given/why not?: Unfractionated heparin MALAIKA, T.EDarryl. Jocelyne, SCD 's
[2017-02-03 12:17] VITALS: BP 152/78; PULSE 62; TEMP 36.7; O2SAT 94
--- NOTE | 2017-02-03 13:14 | Discharge Summary ---
Discharge Summary Date of Service Feb 03, 2017. Discharge Summary Admission Date: Feb 01, 2017 at 14:11 Discharge Date: Feb 03, 2017 Discharge Disposition: Home Principal Diagnosis: chest pain with ix of cad, has ruled out acs Problems/Secondary Diagnoses: Hypertensive emergency, possible Acute kidney injury, hypertriglyceridemia DM Procedures: Treadmill echo Consultations: No Medication Reconciliation New Medications: Ezetimibe (Zetia) 10 Mg Tab 10 MG PO QAM for 30 Days, #30 TAB Hydralazine HCl (Hydralazine HCl) 10 Mg Tab 10 MG PO QID for 30 Days, #120 TAB Continued Medications: Aspirin (Aspirin Ec) 81 Mg Tab 81 MG PO DAILY Atenolol (Tenormin) 50 Mg Tab 50 MG PO DAILY, TAB Pantoprazole (Protonix) 40 Mg Tab 40 MG PO DAILY Simvastatin (Zocor) 20 Mg Tab 10 MG PO QPM, TAB Discontinued Medications: Glipizide (Glipizide Er) 5 Mg Tab 2.5 MG PO BID for 90 Days, #90 TAB 3 Refills Hctz/Lisinopril (Zestoretic 20-12.5 mg) 1 Ea Tab 2 TABS PO DAILY Discharge Exam Sitting up in chair, ready to go home, no nausea vomiting, blood pressure fairly controlled, currently SBP around 150 Review of Systems: Constitutional: No fever, No chills, No sweats, No weight loss, No weakness , No fatigue, No problem reported Eyes: No worsening of vision, No eye pain, No redness, No discharge, No diplopia, No problem reported ENT: No hearing loss, No unusual epistaxis, No nasal symptoms, No sore throat, No tinnitus, No dental problems, No trouble swallowing, No problem reported Respiratory: No cough, No sputum, No wheezing, No shortness of breath, No dyspnea on exertion, No dyspnea at rest, No hemoptysis, No problem reported Cardiovascular: No chest pain, No orthopnea, No PND, No edema, No claudication, No palpitations, No problem reported Abdomen: No pain, No nausea, No vomiting, No diarrhea, No constipation, No GI bleeding, No problem reported Musculoskeletal: No joint pain, No muscle pain, No swelling, No calf pain, No problem reported Genitourinary - Male: No hematuria, No dysuria, No urinary frequency, No urinary urgency, No urinary hesitancy, No urinary retention, No urinary incontinence, No penile discharge, No lesions, No impotence, No problem reported Neurologic: No memory loss, No paralysis, No weakness, No numbness/tingling , No vertigo, No balance problems, No problem reported Psychiatric: No depression symptoms, No anhedonism, No anxiety, No insomnia , No substance abuse, No problem reported Endocrine: No fatigue, No excessive thirst, No excessive urination, No problem reported Hematologic / Lymphatic: No abnormal bleeding/bruising, No clotting problems , No swollen lymph nodes, No night sweats, No problem reported Integumentary: No rash, No itch, No new/changing skin lesions, No color change, No bleeding, No problem reported Physical Exam: General Appearance: WD/WN, no apparent distress Eyes: normal inspection, PERRL ENT: normal ENT inspection, hearing grossly normal Neck: supple, no adenopathy Respiratory/Chest: chest non-tender, normal breath sounds, no respiratory distress, + decreased breath sounds Cardiovascular: regular rate, rhythm, no edema, no gallop, no JVD, no murmur , normal peripheral pulses Abdomen / GI: normal bowel sounds, non tender, soft Extremities: normal inspection, no calf tenderness, normal capillary refill , no pedal edema 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 Patient reported has chest pain, and goes for 4 days, associated shortness of breath, left arm pain and numbness with today's chest discomfort. Pt received ASA in ED. BP elevated while in ED, up to 203/93 during my exam. CXR no acute disease. EKG sinus bradycardia without acute ischemic changes, shows inferior infarct. Cardiac enzymes negative. Creatinine elevated at 1.9, unknown baseline. history of IN s/p cardiac stent x 1 in August 2015, HTN, HLD, DM II and GERD Hypertensive emergency w/chest pain, h/o HTN, stable and improved, however, pt ' s lisinopril/HCTZ was holld due to LEANDRO, will continue to hold, Patient has been given hydralazine 10 mg by mouth 3 times a day, plus hydralazine 10 mg by mouth as needed Blood pressure has been fairly controlled has given prescription of hydrolyzing to home Acute kidney injury--unknown baseline creatinine, Creatinine 1.9 on arrival, today's improved 1.8 Has requested hospital medical record, did not receive it yet Chest pain was intermittent with history of IN and stent, Stent was done in [place] by Dr. Hampton, then [facility] Stress echo was done on 02/02/2017: Reported: Normal baseline EKG without ST changes during exercise. Blunted heart rate response to exercise. BP response to exercise was normal No symptoms reported Echocardiogram was normal at baseline. No obvious inducible wall motion abnormalities but heart rate was not eleveated and image quality was poor at peak exertion. Discussed with star route mail driver, recommend follow-up with primary cardiology as outpatient, and nuclear stress possible need History of diabetic, -HgbA1c was checked at 6.0, diabetic medication glipizide was hold, will continue on hold because of possible acute kidney failure, the CPAP is follow- up with niece hx of dyslipidemia , Fasting lipid panel was done, LDL 22, triglyceride 333, I started Zetia -Continue Hold lisinopril/HCTZ due to LEANDRO -Continue atenolol 50 mg PO qd and ASA 81 mg PO qd -Continue simvastatin 10 mg PO qhs -Hold glipizide Cozaar possible renal failure Code Status -Level I, FULL RESUSCITATION STATUS Instructions / Follow-Up you have intermittent chest pain x 4 days stress echo unremarkable, however, you need to be seen by you team and follow up with star route mail driver in 1 week you have Hypertensive emergency, blood pressure is better, you need to take medicine as instructed, [facility] or go to emergency if blood pressure >200 you have Acute kidney injury, you need to have blood test tomorrow in [place] [facility] and follow up with team, I add Zetia for you Dyslipidemia with high triglyceride I hold your glipizide Cozaar because of oyu possible acute renal failure - you need to follow up with your primary care physician in 1-2 days - take medication as instructed, never overdose or any misuse, or take with alcohol, because misuse of medicine may cause organ damage or , call your primary care physician if have questions of medicaitons. - call your primary care physician OR go to local emergency room if has any fever/chill, chest pain, shortness of breathing, nausea/vomiting/abdominal pain , facial droop/slurry speech/local weakness, or if has any questions. - fall precaution - diet as instructed - you need to follow up with your subspecialist - you should understand that it is important to follow up the above instruction , and "not following the above instruction" may cause delayed or missed care of your medical conditions which may cause permanent organ damage and even . Total Time Spent: Greater than 30 minutes This includes examination of the patient, discharge planning, medication reconciliation, and communication with other providers. Discharge Instructions Please refer to the electronic Patient Visit Report (Discharge Instructions) for additional information.
[2017-02-03] MEDS ORDERED: NURSING VERBAL MED ORDER ONE (13:15)
== END 2017-02-03 13:22 | disposition home or self-care (01) ==
LOC: C.EDB 10:55 → C.2E 14:11 → ENRESERV 14:16
PROVIDERS: ADMIT Hospitalist; ATTEND Hospitalist
DX: R07.9 Chest pain, unspecified (principal); I25.10 Atherosclerotic heart disease of native coronary artery without angina pectoris; I16.1 Hypertensive emergency; E78.1 Pure hyperglyceridemia; E11.9 Type 2 diabetes mellitus without complications; I25.2 Old myocardial infarction; K21.9 Gastro-esophageal reflux disease without esophagitis; Z87.891 Personal history of nicotine dependence; Z79.82 Long term (current) use of aspirin; Z79.899 Other long term (current) drug therapy; Z83.3 Family history of diabetes mellitus; Z82.49 Family history of ischemic heart disease and other diseases of the circulatory system; Z82.3 Family history of stroke